=== PATIENT | female | born 1955 | race Caucasian/White ===

== ENCOUNTER 2023-04-05 18:55 | Emergency (ER) | payer SELFPAY ==
[~2023-04-05] VITALS: Ht 167.6 cm; Wt 98.9 kg
[~2023-04-05 18:55] MED LIST: ATOR10TA69 PO; METF-414 PO
[2023-04-05 19:09] VITALS: O2SAT 98
[2023-04-05] MEDS ORDERED: ONDANSETRON 4MG ODT PO ONE (19:15)
[2023-04-05] MEDS ORDERED: IBUPROFEN 800MG TABLET PO ONE (19:15)
[2023-04-05] MEDS ORDERED: IBUPROFEN 400MG TABLET PO NR (19:30)
[2023-04-05 20:05] LABS: BASOPHILS % 0.4 % (0.0-2.0); DIFFERENTIAL COMMENT 0; EOSINOPHILS % 1.1 % (0.0-5.0); HEMATOCRIT. 31.6 % (36.0-48.0); HEMOGLOBIN. 9.9 g/dL (12.0-16.0); LYMPHOCYTES % 16.6 % (20.0-50.0); MEAN CORPUSCULAR HEMOGLOBIN 24.3 pg (28.0-32.0); MEAN CORPUSCULAR HGB CONC 31.3 g/dL (31.0-37.0); MEAN CORPUSCULAR VOLUME 77.6 fL (81.0-99.0); MONOCYTES % 6.2 % (2.0-8.0); NEUTROPHILS % 75.7 % (40.0-76.0); PLATELET 355 x1000/uL (130-400); RED BLOOD CELL COUNT 4.08 mill/uL (4.2-5.4); RED CELL DISTRIBUTION WIDTH 15.5 % (11.6-14.6); WHITE BLOOD COUNT 10.1 x1000/uL (4.5-11.0)
[2023-04-05 20:17] LABS: ALANINE AMINOTRANSFERASE 16 IU/L (10-49); ALBUMIN 3.9 g/dL (3.2-4.8); ASPARTATE AMINOTRANSFERASE 22 IU/L (<34); BILIRUBIN TOTAL 0.3 mg/dL (0.1-1.0); CALCIUM 9.3 mg/dL (8.7-10.4); CARBON DIOXIDE 27 mEq/L (21-32); CHLORIDE 105 mEq/L (98-107); CREATININE 0.6 mg/dL (0.6-1.0); GLUCOSE 124 mg/dL (70-105); POTASSIUM 4.1 mEq/L (3.5-5.1); PROTEIN TOTAL 8.4 g/dL (6.0-8.3); SODIUM 139 mEq/L (136-145); UREA NITROGEN BLOOD 12 mg/dL (9-23)
[2023-04-05 20:29] LABS: TROPONIN I HIGH SENSITIVITY < 4 ng/L (3.0-34)
[2023-04-05] MEDS ORDERED: TRAM-529 MT (22:46)
[2023-04-05 23:08] VITALS: BP 136/76; PULSE 91; RESP 16; TEMP 99
== END 2023-04-05 23:09 | disposition home or self-care (01) ==
LOC: ER 18:55
DX: K80.50 Calculus of bile duct without cholangitis or cholecystitis without obstruction (principal); K80.20 Calculus of gallbladder without cholecystitis without obstruction; D64.9 Anemia, unspecified
CPT/HCPCS: 99284; 80053; 83690; 85025; 84484; 36415; 93005; Q0162